=== PATIENT | male | born 1960 | race African-American/Black ===

== ENCOUNTER 2017-06-11 15:22 | Emergency (ER) | payer OTHER ==
[~2017-06-11] VITALS: Ht 182.9 cm; Wt 86.6 kg
[~2017-06-11 15:22] MED LIST: CHERATUSSIN DA480 ML PO; GLUCOPHAGE XR500 MG PO; METFORMIN PO; ZPAK PO
[2017-06-11] MEDS ORDERED: TIZANIDINE HCL4 MG PO (15:50)
[2017-06-11] MEDS ORDERED: ULTRAM 50MG TAB50 MG PO (15:50)
== END 2017-06-11 16:11 | disposition home or self-care (01) ==
LOC: ER 15:22
DX: S00.83XA Contusion of other part of head, initial encounter (principal); M25.512 Pain in left shoulder; E11.9 Type 2 diabetes mellitus without complications; Z96.651 Presence of right artificial knee joint; V89.2XXA Person injured in unspecified motor-vehicle accident, traffic, initial encounter; Y93.I9 Activity, other involving external motion; Y92.89 Other specified places as the place of occurrence of the external cause; Y99.8 Other external cause status

== ENCOUNTER 2018-05-15 10:14 | Emergency (ER) | payer OTHER ==
[~2018-05-15] VITALS: Ht 182.9 cm; Wt 86.2 kg
[~2018-05-15 10:14] MED LIST changes: +TIZANIDINE HCL4 MG PO; +ULTRAM 50MG TAB50 MG PO
[2018-05-15 10:55] LABS: ABSOLUTE NEUTROPHILS 8.6 thou/uL (1.4-8.2); EOSINOPHILS 0.1 % (0.0-3.0); HEMATOCRIT 49.1 % (42.0-52.0); HEMOGLOBIN 17.1 gm/dL (14.0-18.0); LYMPHOCYTES 14.8 % (24.0-44.0); MCH 31.5 pg (26.0-34.0); MCHC 34.9 g/dL (28.0-37.0); MCV 90.3 fL (80.0-100.0); MONOCYTES 4.4 % (1.0-8.0); PLATELET COUNT 308 thou/uL (150-400); POLYS 79.7 % (36.0-66.0); RBC 5.44 mil/uL (4.50-6.00); WBC 10.7 thou/uL (4.0-11.0)
[2018-05-15 10:59] LABS: ANION GAP 14 mmol/L (7-16); BUN 18 mg/dL (7-18); CALCIUM 9.7 mg/dL (8.5-10.1); CHLORIDE 98 mmol/L (98-107); CO2 26 mmol/L (21-32); CREATININE 1.4 mg/dL (0.7-1.3); GLUCOSE 303 mg/dL (74-106); POTASSIUM 3.5 mmol/L (3.5-5.1); SODIUM 138 mmol/L (136-145)
[2018-05-15 11:05] LABS: DIRECT BILIRUBIN < 0.1 mg/dL (<0.1-0.3); LIPASE 39 U/L (73-393); SGOT 17 U/L (15-37); SGPT 24 U/L (30-65); TOTAL BILIRUBIN 0.4 mg/dL (<0.1-1.0); TOTAL PROTEIN 8.1 g/dL (6.4-8.2)
[2018-05-15 11:09] LABS: APTT 29.3 Seconds (24.5-32.8); INR 1.1; PROTIME 11.4 Seconds (9.3-11.4)
[2018-05-15] MEDS ORDERED: PRILOSEC 20 MG20 MG PO (13:37)
[2018-05-15 14:28] VITALS: BP 145/88
== END 2018-05-15 18:25 | disposition home or self-care (01) ==
LOC: ER 10:14
PROVIDERS: Emergency Medicine
DX: R11.2 Nausea with vomiting, unspecified (principal); E11.9 Type 2 diabetes mellitus without complications; Z96.651 Presence of right artificial knee joint